=== PATIENT | male | born 1960 | race Caucasian/White ===

== ENCOUNTER 2016-06-25 12:08 | Emergency (ER) | payer OTHER ==
[2016-06-25 12:49] VITALS: BP 128/107; TEMP 98.8; O2SAT 96
[2016-06-25] MEDS ORDERED: BENZONATATE 100 MG CAP PO ONE (13:06)
[2016-06-25] MEDS ORDERED: IPRATROPIUM/ALBUTEROL 3 ML DEYVIAL IH ONE (13:06)
--- NOTE | 2016-06-25 13:06 | DX ---
PA and Lateral Chest June 25, 2016 Indication: Cough for one month. Comparison: None Findings: Minimal peribronchial thickening atelectasis in the lower lung zones. No pneumothorax, pulm onary nodule, consolidation, edema or effusion. Minimal degenerative disk disease is present in the m id and lower thoracic spine. Impression: 1. Minimal bronchitis and atelectasis. 2. No pneumonia or mass.
--- NOTE | 2016-06-25 13:10 | UCPHY ---
H & P Time Seen by Provider: 06/25/16 12:41 Patient Type: Established HPI/ROS: HPI Cough. 55-year-old male by private vehicle. This patient reports he has had a cough for the last 10 days. He reports that over the last 2 days it has gotten significantly worse. He also describes having some muscle aches, a sore throat associated with cough. He describes the cough is mostly dry but it has become more wet nonproductive over the last 2 days. No fever. ROS: Constitutional: No fever, no chills. No weakness. Eyes: No discharge. No changes in vision. ENT: As above. No nasal congestion or rhinorrhea. Respiratory: As above. No shortness of breath. Cardiac: No chest pain, no palpitations. Gastrointestinal: No abdominal pain, no vomiting, no diarrhea. Genitourinary: No hematuria. No dysuria or increased frequency with urination. Musculoskeletal: No back pain. No neck pain. As above. Skin: No rashes. Neurological: No headache. No focal weakness or altered sensation. Past medical history: Orthopedic surgeries. Social history: Here by himself. Physical Exam: General Appearance: Alert, no distress. This patient is responding to questions appropriately and in full sentences. This patient appears well- hydrated and well-nourished. Eyes: Pupils equal and round no pallor or injection. No lid edema, erythema or injection. ENT, Mouth: Mucous membranes are moist. The pharyngeal tissues are unremarkable. No edema or swelling. No asymmetry suggestive of abscess. No erythema or exudates. Respiratory: There are no retractions, wet cough, no tachypnea, scant/faint rhonchi mid lung poon. Cardiovascular: Regular rate and rhythm. No murmur. Neurological: Motor sensory function is grossly intact. Cranial nerves are normal. Gait is normal. Skin: Warm and dry, no rashes. Musculoskeletal: Neck is supple and nontender. Extremities are symmetrical. All joints range without pain or impingement. Psychiatric: No agitation. No depression. Database: Rapid influenza: Positive. EKG: Imaging: Chest x-ray PA and lateral; the cardiac mediastinal silhouette is unremarkable. No evidence of infiltrate or pneumothorax. Minimal bronchitis. No other acute cardiopulmonary disease process noted. Interpreted by me. Procedures: Emergency department course: Patient sent for chest x-ray. Patient started on an albuterol/Atrovent nebulizer treatment. Patient given 200 mg of Tessalon Perle. 1:45 p.m., patient influenza positive. Patient's cough has decreased significantly with above medications. Patient given 75 mg of Tamiflu orally. 2:00 p.m., patient re-evaluated. Resting comfortably at this time. Cough remains depressed after above medications. Patient feels comfortable going home. Follow-up and return to Urgent Care precautions were discussed with him. He will be prescribed Tamiflu, Hycodan cough syrup and Tessalon Perle. He does have an albuterol inhaler at home currently. He was discharged in good condition. Differential Diagnosis: The differential diagnosis on this patient includes but is not limited to bronchitis, pneumonia, influenza. This represents a partial list of diagnoses considered. These considerations are based on history, physical exam, past history, reassessment and diagnostic testing. Smoking Status: Never smoked Constitutional: Initial Vital Signs Temperature (C) 37.1 C 06/25/16 12:42 Heart Rate 112 H 06/25/16 12:42 Respiratory Rate 18 06/25/16 12:42 Blood Pressure 128/107 H 06/25/16 12:42 O2 Sat (%) 96 06/25/16 12:42 O2 Delivery Mode Room Air Allergies/Adverse Reactions: No Known Allergies Allergy (Verified 06/25/16 12:41) Home Medications: Medication Instructions Recorded Calcium 07/18/10 Diovan-Hct 07/18/10 PRILOSEC 07/18/10 VITAMIN 07/18/10 Albuterol [Proventil Inhaler HFA 1 - 2 puffs IH Q4PRN PRN #1 mdi 11/12/12 (*)] Benzonatate [Tessalon Pearles] 100 mg PO TID #12 cap 06/25/16 Benzonatate [Tessalon Pearles] 100 mg PO TID #12 cap 06/25/16 HYDROcodone/HOMATROPINE HYCODA 1 tsp PO Q4-6PRN PRN #120 ml 06/25/16 [Hycodan Syrup (RX)] Oseltamivir Phosphate [Tamiflu 75 75 mg PO BID #10 cap 06/25/16 mg (RX)] Medical Decision Making - Data Points Laboratory Results: 06/25/16 13:15 Influenza Typ A,B (DFA) POSITIVE FOR FLU A H (NEGATIVE) Medications Given: Discontinued Medications Albuterol/Ipratropium (Duoneb) 6 ml IH EDNOW ONE Stop: 06/25/16 13:07 Last Admin: 06/25/16 13:40 Dose: 6 ml Benzonatate (Tessalon Pearles) 200 mg PO EDNOW ONE Stop: 06/25/16 13:07 Last Admin: 06/25/16 13:10 Dose: 200 mg Departure - Departure Disposition: Home, Routine, Self-Care Clinical Impression: Cough, Bronchitis, Influenza A Condition: Good Instructions: Influenza (ED) Additional Instructions: Read and follow provided instructions. Follow-up with your primary care physician in 1-2 days for re-evaluation. Take medication as prescribed. Albuterol meter dose inhaler: 1-2 puffs every 2-4 hours as needed for cough. Ibuprofen dosin mg every 6 hours with meals for the next 3 days only. Return to the emergency department for worsening symptoms, high fever or other serious concerns. Referrals: Dedrick Chen PA [Primary Care Provider] - As per Instructions Prescriptions: HYDROcodone/HOMATROPINE HYCODA [Hycodan Syrup (RX)] 1 tsp PO Q4-6PRN PRN #120 ml PRN Reason: Cough Oseltamivir Phosphate [Tamiflu 75 mg (RX)] 75 mg PO BID #10 cap Benzonatate [Tessalon Pearles] 100 mg PO TID #12 cap Benzonatate [Tessalon Pearles] 100 mg PO TID #12 cap - PQRS PQRS Measurement: Not applicable.
[2016-06-25] MEDS ORDERED: OSELTAMIVIR PHOSPHATE 75 MG CAP PO ONE (13:43)
[2016-06-25 14:27] VITALS: PULSE 105; RESP 22
== END 2016-06-25 14:18 | disposition home or self-care (01) ==
LOC: CED 12:08
DX: J11.1 Influenza due to unidentified influenza virus with other respiratory manifestations (principal)
CPT/HCPCS: 71020-PO; 87400-PO; 99214-PO; G0463-PO